=== PATIENT | male | born 1950 | race Caucasian/White ===

== ENCOUNTER 2020-01-14 18:03 | Emergency (ER) | payer MEDICARE, OTHER ==
[~2020-01-14] VITALS: Ht 195.6 cm; Wt 136.1 kg
[~2020-01-14 18:03] MED LIST: ADVAIR 250-501 EACH INH; ANTACID168 MG PO; AZITHROMYCIN 2250 MG PO; BACTRIM DS TAB1 EAC1 PO; COMBIVENT INH; COMBIVIR; FINASTERIDE5 MG PO; HYDROCODONE-AP1 EAC6 PO; LANSOPRAZOLE30 MG PO; LEVAQUIN 500 M500 MG PO; MEDROLDOSEPACK PO; NORVASC5 MG PO; OMEPRAZOLE40 MG; PREDNISONE 10 M10 MG PO; PREDNISONE50 MG PO; PRINIVIL20 MG PO; SINGULAIR 10 MG10 M1 PO; SINGULAIR 10 MG10 MG PO; VENTOLIN HFA 1818 GM INH; ZPAK PO
[2020-01-14] MEDS ORDERED: SPIRIVA18 MCG INH (18:14)
[2020-01-14] MEDS ORDERED: ANXIETY MED (18:14)
[2020-01-14 18:37] LABS: ABSOLUTE BASOPHILS 0.3 thou/uL (0.0-0.2); ABSOLUTE EOSINOPHILS 0.3 thou/uL (0.0-0.7); ABSOLUTE LYMPHOCYTES 2.3 thou/uL (0.8-5.3); ABSOLUTE MONOCYTES 1.2 thou/uL (0.0-1.2); ABSOLUTE NEUTROPHILS 9.1 thou/uL (1.6-8.1); BASOPHILS 2.1 %; EOSINOPHILS 2.2 %; HEMATOCRIT 44.5 % (42.0-52.0); LYMPHOCYTES 17.3 %; MCH 29.7 pg (26.0-34.0); MCHC 33.8 g/dL (28.0-37.0); MCV 87.9 fL (80.0-100.0); MONOCYTES 9.3 %; MPV 9.1 fl. (7.2-11.1); NUCLEATED RBCS 0 /100WBC; PLATELET COUNT* 319 thou/uL (150-400); POLYS 69.1 %; RBC 5.06 mil/uL (4.50-6.00); RDW-CV 13.7 % (10.5-14.5); WBC 13.1 thou/uL (4.0-11.0)
[2020-01-14 18:42] LABS: CALCIUM 8.6 mg/dL (8.5-10.1); POTASSIUM 3.9 mmol/L (3.5-5.1)
[2020-01-14 18:46] LABS: ALBUMIN 3.5 g/dL (3.4-5.0); TOTAL BILIRUBIN 0.9 mg/dL (<0.1-1.0); TOTAL PROTEIN 7.9 g/dL (6.4-8.2)
[2020-01-14 21:31] LABS: URINE BILIRUBIN NEGATIVE (Negative); URINE BLOOD NEGATIVE (Negative); URINE CLARITY CLEAR; URINE COLOR YELLOW; URINE GLUCOSE-RANDOM NEGATIVE (Negative); URINE KETONES NEGATIVE (Negative); URINE LEUKOCYTES-REFLEX NEGATIVE (Negative); URINE NITRITE-REFLEX NEGATIVE (Negative); URINE PROTEIN NEGATIVE (Negative); URINE UROBILINOGEN 0.2 E.U./dl (0.2-1.0)
[2020-01-14] MEDS ORDERED: ZOFRAN ODT4 MG DISSOLVE (21:48)
[2020-01-14] MEDS ORDERED: NORCO 5-325 TA1 EAC1 PO (21:48)
[2020-01-14 21:58] VITALS: BP 125/89
--- NOTE | 2020-01-16 12:10 | EKG ---
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
== END 2020-01-14 21:59 | disposition home or self-care (01) ==
LOC: M.ERS 18:03
PROVIDERS: Physician Assistant
DX: R10.33 Periumbilical pain (principal); R10.32 Left lower quadrant pain; I10 Essential (primary) hypertension; J44.9 Chronic obstructive pulmonary disease, unspecified; J45.909 Unspecified asthma, uncomplicated; K21.9 Gastro-esophageal reflux disease without esophagitis; Z87.891 Personal history of nicotine dependence